=== PATIENT | male | born 1960 | race Hispanic/Latino ===

== ENCOUNTER 2018-11-29 21:23 | Emergency (ER) | payer OTHER ==
[2018-11-29] MEDS ORDERED: TETANUS/DIPHTHERIA TOXOID [ADULT] 0.5 ML VIAL IM ONE (22:38)
== END 2018-11-29 23:17 | disposition home or self-care (01) ==
LOC: EDH 21:23
DX: S80.11XA Contusion of right lower leg, initial encounter (principal); E11.9 Type 2 diabetes mellitus without complications; Z79.84 Long term (current) use of oral hypoglycemic drugs; W18.39XA Other fall on same level, initial encounter; Y93.01 Activity, walking, marching and hiking; Y92.89 Other specified places as the place of occurrence of the external cause; Y99.8 Other external cause status
CPT/HCPCS: 73590; 90471; 90714

== ENCOUNTER 2019-08-27 20:16 | Emergency (ER) | payer OTHER ==
[2019-08-27] MEDS ORDERED: ACETAMINOPHEN EXTRA STRENGTH 500 MG TABLET ONE (21:35)
== END 2019-08-27 22:30 | disposition home or self-care (01) ==
LOC: EDH 20:16
DX: M25.561 Pain in right knee (principal); M79.604 Pain in right leg; E11.9 Type 2 diabetes mellitus without complications
CPT/HCPCS: 73562; 93971

== ENCOUNTER 2021-04-15 20:24 | Emergency (ER) | payer OTHER ==
[~2021-04-15] VITALS: Ht 177.8 cm; Wt 83.9 kg
[2021-04-15 20:26] VITALS: BP 165/94
[2021-04-15] MEDS ORDERED: ACET-2247 PO (22:03)
== END 2021-04-15 22:21 | disposition home or self-care (01) ==
LOC: EDH 20:24
DX: S92.001A Unspecified fracture of right calcaneus, initial encounter for closed fracture (principal); S93.401A Sprain of unspecified ligament of right ankle, initial encounter; S93.601A Unspecified sprain of right foot, initial encounter; E11.9 Type 2 diabetes mellitus without complications; W06.XXXA Fall from bed, initial encounter; Y93.89 Activity, other specified; Y92.89 Other specified places as the place of occurrence of the external cause; Y99.8 Other external cause status
CPT/HCPCS: 29515; 73600; 73630